=== PATIENT | male | born 1965 | race Caucasian/White ===

== ENCOUNTER 2017-07-21 00:18 | Emergency (ER) ==
[2017-07-21 00:29] VITALS: TEMP 97.1; BMI 35.2
[2017-07-21] MEDS ORDERED: DUONEB NEB STA (00:48)
[2017-07-21] MEDS ORDERED: SOLU-MEDROL 125 MG IM STA (00:48)
--- NOTE | 2017-07-21 00:57 | ED.PDOC ---
General ED Provider: Dr. JOSE ALEJANDRO LOVE Chief Complaint: Cough Stated Complaint: Patient is a 51 year old male who comes to the ER with cough conjestion for the past two weeks. Has productive cough which he swallows. Post nasal Drip, chest tightness. Time Seen by Physician: 00:20 Mode of Arrival: Walk-In Information Source: Patient Exam Limitations: No limitations [facility] Nursing and Triage Documentation Reviewed and Agree: Yes Respiratory Complaint Exam - Respiratory Complaint/Exam Onset/Duration: 2 weeks Symptoms Are: Still present Timing: Constant Initial Severity: Moderate Current Severity: Moderate Location: Throat (sore ), Chest Character: Reports: Productive cough Aggravating: Reports: URI, Passive smoke exposure, Weather Alleviating: Reports: None Associated Signs and Symptoms: Reports: Rapid breathing, Dyspnea, Wheezing, URI , Sore throat Related History: Denies: Similar episode, Allergic reaction, Seasonal allergies , MRSA, VRE History of Healthcare-Acquired Pneumonia: No Related Surgical History: Reports: None Pulmonary Embolism Risk Factors: None Cardiac Risk Factors: Reports: None Pseudomonas Risk Factors: Reports: None Status Asthmaticus Risk Factors: Reports: None Home Oxygen Use: No Recent Stress Test: No Recent Echo/LV Function: No Current Antibiotic Use: No Current Asthma Medication Use: No Respiratory Distress: Mild Inadequate Respiratory Effort: No Dysphagia Present: No Stridor Present: No JVD Present: No Accessory Muscle Use: No Retractions: Not Present Diminished Breath Sounds: Yes Sinus Tenderness: None Grunting Respirations: No Kussmaul Respirations: No Differential Diagnoses: Pneumonia, Bronchitis Review of Systems - Review Of Systems Constitutional: Reports: No symptoms Eyes: Reports: No symptoms Ears, Nose, Mouth, Throat: Reports: No symptoms Respiratory: Reports: Cough, Short of air, Wheezing Cardiac: Reports: No symptoms GI: Reports: No symptoms : Reports: No symptoms Musculoskeletal: Reports: No symptoms Skin: Reports: No symptoms Neurological: Reports: Anxiety Endocrine: Reports: No symptoms Hematologic/Lymphatic: Reports: No symptoms All Other Systems: Reviewed and Negative Past Medical History - Past Medical History Previously Healthy: No Endocrine: Reports: None Cardiovascular: Reports: Hypertension, Other (ENLARGED HEART) Respiratory: Reports: None Hematological: Reports: None Gastrointestinal: Reports: GERD Genitourinary: Reports: None Neuro/Psych: Reports: None Musculoskeletal: Reports: Arthritis, Back Pain Cancer: Reports: None, Other ( notes melanoma- bone scan 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/15 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) Other Pertinent Past Medical History: BACK SURGERY X2, KNEE SURGERY , REMOVED CYST OFF HEAD htn gerd - Surgical History General Surgical History: Reports: Orthopedic (KNEE SURGERY , ), Back Surgery ( BACK SURGERY X2, ), Other (REMOVED CYST OFF HEAD) - Family History Family History: Reports: Cancer (prostate metastatic to brain), Unknown - Social History Smoking Status: Current every day smoker, Heavy tobacco smoker Hx Substance Use: No Alcohol Screening: None - Immunizations Tetanus Shot up to Date: No (UNKNOWN) Physical Exam - Physical Exam Appearance: Ill-appearing Ill-appearing: Moderate Eyes: CARI, EOMI, Conjunctiva clear ENT: Ears normal, Oropharynx normal, Rhinorrhea Neck: Supple Respiratory: Breath sounds diminished, Wheezes Cardiovascular: RRR, Pulses normal, No rub, No murmur GI/: Soft, Nontender, No masses, Bowel sounds normal, No Organomegaly Musculoskeletal: Normal strength, ROM intact, No edema, No calf tenderness Skin: Warm, Dry, Normal color Neurological: Sensation intact, Motor intact, Reflexes intact, Cranial nerves intact, Alert, Oriented Psychiatric: Affect appropriate, Mood appropriate Interpretation - Radiology Interpretation Radiology Interpretation By: ED Physician Radiology Results: Negative Exam Interpreted: CXR Critical Care Note - Critical Care Note Total Time (mins): 0 Course - Course Hematology/Chemistry: 07/21/17 01:10 07/21/17 01:10 Orders, Labs, Meds: Lab Review 07/21/17 07/21/17 07/21/17 00:35 00:47 01:10 WBC 6.35 RBC 5.85 Hgb 17.3 Hct 48.0 MCV 82.1 MCH 29.6 MCHC 36.0 H RDW Coeff of Zaina 13.7 Plt Count 193 Immature Gran % (Auto) 0.9 Neut % (Auto) 57.4 Lymph % (Auto) 26.5 Lamar % (Auto) 9.1 Eos % (Auto) 5.2 Baso % (Auto) 0.9 Immature Gran # (Auto) 0.1 Neut # 3.6 Lymph # 1.7 Lamar # 0.6 Eos # 0.3 Baso # 0.1 Puncture Site Rrad O2 Saturation 96.0 ABG pH 7.444 ABG pCO2 34.8 L ABG pO2 80.0 L ABG HCO3 23.9 ABG Total CO2 25 ABG Base Excess 0 Mo Test + FiO2 % 21.0 Sodium Potassium Chloride Carbon Dioxide Anion Gap BUN Creatinine Estimated GFR (MDRD) BUN/Creatinine Ratio Glucose Lactic Acid Calcium Total Bilirubin AST ALT Alkaline Phosphatase Total Protein Albumin Globulin Albumin/Globulin Ratio Procalcitonin Influenza A (Rapid) Negative Influenza B (Rapid) Negative 07/21/17 07/21/17 07/21/17 01:10 01:10 01:10 WBC RBC Hgb Hct MCV MCH MCHC RDW Coeff of Zaina Plt Count Immature Gran % (Auto) Neut % (Auto) Lymph % (Auto) Lamar % (Auto) Eos % (Auto) Baso % (Auto) Immature Gran # (Auto) Neut # Lymph # Lamar # Eos # Baso # Puncture Site O2 Saturation ABG pH ABG pCO2 ABG pO2 ABG HCO3 ABG Total CO2 ABG Base Excess Mo Test FiO2 % Sodium 137 Potassium 3.8 Chloride 104 Carbon Dioxide 20 L Anion Gap 16.8 BUN 18 Creatinine 1.00 Estimated GFR (MDRD) 79.00 BUN/Creatinine Ratio 18.00 Glucose 87 Lactic Acid 11.0 Calcium 9.8 Total Bilirubin 0.63 AST 31 ALT 33 Alkaline Phosphatase 83 Total Protein 8.1 Albumin 4.1 Globulin 4.0 Albumin/Globulin Ratio 1.03 Procalcitonin 0.07 Influenza A (Rapid) Influenza B (Rapid) Orders Category Date Time Status ABG DRAW REQUEST Stat CARDIO 07/21/17 00:50 Completed NEBULIZER TREATMENT Stat CARDIO 07/21/17 00:50 Completed NEBULIZER TREATMENT Stat CARDIO 07/21/17 01:56 Completed ABG Stat LAB 07/21/17 00:47 Completed CBC W/ AUTO DIFF Stat LAB 07/21/17 01:10 Completed COMPREHENSIVE METABOLIC PANEL Stat LAB 07/21/17 01:10 Completed FLU A & B RAPID TEST [RAPID FLU A/B] Stat LAB 07/21/17 00:35 Completed LACTIC ACID Stat LAB 07/21/17 01:10 Completed MOLECULAR GROUP A STREP Stat LAB 07/21/17 00:35 Completed PROCALCITONIN Stat LAB 07/21/17 01:10 Completed STREP SCREEN Stat LAB 07/21/17 00:35 Completed Ipratropium/Albuterol Neb [Duoneb] MEDS 07/21/17 00:48 Discontinued 1 vial NEB ONCE STA Levalbuterol HCl [Xopenex 1.25 mg] MEDS 07/21/17 01:55 Discontinued 1 vial NEB ONCE STA Methylprednisolone Sod Succ/Pf [Solu-Medrol 125 mg] MEDS 07/21/17 00:48 Discontinued 125 mg IM ONCE STA CHEST, 2 VIEWS PA & LAT Stat RADS 07/21/17 00:48 Completed Medications Discontinued Medications Generic Name Dose Route Start Last Admin Trade Name Freq PRN Reason Stop Dose Admin Albuterol/Ipratropium 1 vial 07/21/17 00:48 07/21/17 00:55 Duoneb NEB 07/21/17 00:49 1 vial ONCE STA Administration Levalbuterol HCl 1 vial 07/21/17 01:55 07/21/17 02:08 Xopenex 1.25 Mg NEB 07/21/17 01:56 1 vial ONCE STA Administration Methylprednisolone Sodium Succinate 125 mg 07/21/17 00:48 07/21/17 01:21 Solu-Medrol 125 Mg IM 07/21/17 00:49 125 mg ONCE STA Administration Vital Signs: Temp Pulse Resp BP Pulse Ox 07/21/17 02:19 85 20 126/75 94 L 07/21/17 00:18 97.1 F L 83 32 H 155/79 H 93 L Departure - Departure Time of Disposition: 01:36 Disposition: HOME SELF-CARE Discharge Problem: Acute bronchitis Qualifiers: Bronchitis organism: other organism Qualified Code(s): J20.8 - Acute bronchitis due to other specified organisms Instructions: Acute Bronchitis (ED) Condition: Fair Pt referred to PMD for follow-up: Yes Additional Instructions: Push fluids Follow up with PCP in 3 days Quit smoking Take antibiotics and steroids as prescribed. Prescriptions: Azithromycin [Zithromax] 250 mg PO DIRECTED #6 tablet Benzonatate [Tessalon Perles] 100 mg PO TID PRN #25 capsule PRN Reason: Cold Symptons Methylprednisolone [Medrol Dosepak] 4 mg PO DIRECTED #1 pkg Allergies/Adverse Reactions: Allergies No Known Allergies Allergy (Verified 07/21/17 00:28) Home Medications: Ambulatory Orders Hydrocodone Bit/Acetaminophen [Lortab 10-500] 1 tab PO TID PRN 03/16/13 Cyclobenzaprine HCl [Flexeril] 10 mg PO TID PRN 10/11/13 Acetaminophen [Tylenol] 500 mg PO BID PRN 07/24/15 Tamsulosin HCl [Flomax] 0.4 mg PO DAILY #30 cap.er.24h 07/24/15 Aspirin [Aspir-Low] 81 mg PO DAILY #30 tablet. 08/21/16 Azithromycin [Zithromax] 250 mg PO DIRECTED #6 tablet 07/21/17 Benzonatate [Tessalon Perles] 100 mg PO TID PRN #25 capsule 07/21/17 Methylprednisolone [Medrol Dosepak] 4 mg PO DIRECTED #1 pkg 07/21/17 Omeprazole [Prilosec] 40 mg PO DAILY 07/21/17 Disposition Discussed With: Patient
[2017-07-21 00:58] LABS: FLU INTERNAL QC INTERNAL QC VALID; RAPID FLU A NEGATIVE (NEGATIVE); RAPID FLU B NEGATIVE (NEGATIVE)
[2017-07-21 01:10] LABS: ABG BASE EXCESS 0 (-2.0-2.0); ABG HCO3 23.9 (22.0-26.0); ABG PCO2 34.8 mmHg (35-45); ABG PH 7.444 (7.35-7.45); ABG TCO2 25 (22.0-28.0)
[2017-07-21 01:24] LABS: BASOPHILS # (AUTO) 0.1 K/uL (0-0.2); BASOPHILS % (AUTO) 0.9 % (0.0-3.0); EOSINOPHILS # (AUTO) 0.3 K/ul (0.0-0.7); EOSINOPHILS % (AUTO) 5.2 % (0.0-7.0); HEMOGLOBIN 17.3 g/dl (14.0-18.0); IMMATURE GRANULOCYTE % (AUTO) 0.9 % (0.0-5.0); LYMPHOCYTES # (AUTO) 1.7 K/uL (0.60-3.4); LYMPHOCYTES % (AUTO) 26.5 (10.0-50.0); MEAN CORPUSCULAR HEMOGLOBIN 29.6 pg (27.0-31.0); MEAN CORPUSCULAR VOLUME 82.1 fl (80.0-94.0); MONOCYTES # (AUTO) 0.6 K/uL (0.4-2.0); MONOCYTES % (AUTO) 9.1 (0-10); NEUTROPHILS # (AUTO) 3.6 K/ul (2.0-6.9); NEUTROPHILS % (AUTO) 57.4; PLATELET COUNT 193 10^3/uL (140-440); RED BLOOD COUNT 5.85 10^6/ul (4.70-6.10); WHITE BLOOD COUNT 6.35 K/ul (4.2-10.2)
[2017-07-21 01:31] LABS: ALBUMIN 4.1 g/dL (3.4-5.0); ALBUMIN/GLOBULIN RATIO 1.03; ANION GAP 16.8; BILIRUBIN,TOTAL 0.63 mg/dL (0.00-1.20); CALCIUM 9.8 mg/dL (8.2-10.2); POTASSIUM 3.8 mmol/L (3.5-5.1); TOTAL PROTEIN 8.1 g/dL (6.4-8.2)
[2017-07-21] MEDS ORDERED: XOPENEX 1.25 MG NEB STA (01:55)
[2017-07-21 02:19] VITALS: BP 126/75
--- NOTE | 2017-07-21 06:14 | DI ---
EXAM: Chest two views HISTORY: Cough FINDINGS: Normal cardiac and mediastinal contours. Normal pulmonary vasculature. Lungs are clear. Atherosclerotic calcification of the aorta. No acute abnormality of the bony thorax. IMPRESSION: No acute cardiopulmonary disease.
== END 2017-07-21 02:26 | disposition home or self-care (01) ==
LOC: ED 00:18
DX: J20.9 Acute bronchitis, unspecified (principal); F17.210 Nicotine dependence, cigarettes, uncomplicated
CPT/HCPCS: 36415; 80053; 82803; 83605; 84145; 85025; 87651; 87804; 87880; 94640; 96372; 99283

== ENCOUNTER 2018-03-11 15:42 | Outpatient (CLI) | END 2018-03-11 15:43 | disposition home or self-care (01) | LOC: RHC-LAB 15:42 | PROVIDERS: ATTEND Nurse Practitioner Family | DX: Z12.5 Encounter for screening for malignant neoplasm of prostate (principal); Z72.0 Tobacco use; E78.1 Pure hyperglyceridemia | CPT/HCPCS: 36415; 80053; 80061; 84443; 85025 ==

== ENCOUNTER 2018-05-13 15:42 | Outpatient (CLI) | END 2018-05-13 15:43 | disposition home or self-care (01) | LOC: RHC-LAB 15:42 | PROVIDERS: ATTEND Nurse Practitioner Family | DX: R71.8 Other abnormality of red blood cells (principal); E78.5 Hyperlipidemia, unspecified; E78.1 Pure hyperglyceridemia | CPT/HCPCS: 36415; 80053; 80061; 85025 ==

== ENCOUNTER 2018-11-18 16:11 | Emergency (ER) ==
[2018-11-18 16:24] VITALS: BP 131/81; TEMP 97.7; BMI 5437.4
--- NOTE | 2018-11-18 16:32 | ED.PDOC ---
General ED Provider: Dr. IVONNE LARA Chief Complaint: Chest Pain Stated Complaint: L arm pain; chest pain Time Seen by Physician: 16:35 Mode of Arrival: Walk-In Information Source: Patient Exam Limitations: No limitations Primary Care Provider: LUCY PEDRAZA Nursing and Triage Documentation Reviewed and Agree: Yes Does patient meet sepsis criteria?: No System Inflammatory Response Syndrome: Not Applicable Sepsis Protocol: For patient's 13 years and over: Temp is 96.8 and below OR 101 and greater Pulse >90 BPM Resp >20/minute Acutely Altered Mental Status Are patient's symptoms suggestive of a new infection, such as: -Pneumonia -Skin, Soft Tissue -Endocarditis -UTI -Bone, Joint Infection -Implantable Device -Acute Abdominal Infection -Wound Infection -Meningitis -Blood Stream Catheter Infection -Unknown Cardiovascular Complaint Exam - Chest Pain Complaint/Exam Onset: Gradual (Usually gets some CP that does not last long - usually relieved by rest; has not slept well - tired) Symptoms Are: Still present (Much better) Timing: Constant (Today started left arm then moved to chest; no shortness of air; feels tired) Initial Severity: Moderate Current Severity: Mild Location: Reports: Midsternal (after Left arm pain) Character: Reports: Aching Aggravating: Reports: Movement (Pain increased with stretching arms outwards) Alleviating: Reports: Rest Associated Signs and Symptoms: Denies: Diaphoresis, Nausea, Fever, Palpitations , Cough Related History: Reports: Similar episode (Has had frequently; usually clears up and is better after sleeping; lately cannot sleep well; feels tired.) Review of Systems - Review Of Systems Constitutional: Reports: Malaise, Weakness (Chronic) Ears, Nose, Mouth, Throat: Reports: No symptoms Respiratory: Reports: No symptoms. Denies: Cough, Orthopnea, Short of air, Stridor Cardiac: Reports: Chest pain, Lightheadedness. Denies: Edema, Irregular heart rate GI: Reports: No symptoms. 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) Other Pertinent Past Medical History: BACK SURGERY X2, KNEE SURGERY , REMOVED CYST OFF HEAD htn gerd - Surgical History General Surgical History: Reports: Orthopedic (KNEE SURGERY , ), Back Surgery ( BACK SURGERY X2, ), Other (REMOVED CYST OFF HEAD) - Family History Family History: Reports: Cancer (prostate metastatic to brain), Unknown - Social History Smoking Status: Current every day smoker, Heavy tobacco smoker Hx Substance Use: No Alcohol Screening: None Physical Exam - Physical Exam Appearance: Well-appearing Ill-appearing: None Pain Distress: None Eyes: CARI, EOMI ENT: Oropharynx normal Neck: Supple Respiratory: Airway patent, Breath sounds clear, Breath sounds equal, Respirations nonlabored Cardiovascular: RRR, Pulses normal GI/: Soft, Nontender, Bowel sounds normal Musculoskeletal: Normal strength, ROM intact, No edema, No calf tenderness Skin: Warm, Dry, Normal color Neurological: Sensation intact, Motor intact, Alert, Oriented Psychiatric: Affect appropriate, Mood appropriate Interpretation - Radiology Interpretation Radiology Interpretation By: ED Physician Radiology Results: No acute changes Exam Interpreted: Portable CXR - EKG Interpretation Time of EKG #1: 16:35 Rate: Normal Rhythm: Sinus Ectopy: None [place]: [place] ST Segment: Normal Interpretation: No acute changes Critical Care Note - Critical Care Note Total Time (mins): 35 Comments: Review of symptoms, history, labs, chest Xray; EKG and discussisons with patient with spouse present. Repeat tropoinin Course - Course Hematology/Chemistry: 11/18/18 16:41 11/18/18 16:41 Orders, Labs, Meds: Lab Review 11/18/18 11/18/18 11/18/18 16:35 16:41 16:41 WBC 4.90 RBC 5.35 Hgb 15.7 Hct 44.8 MCV 83.7 MCH 29.3 MCHC 35.0 RDW Coeff of Zaina 13.8 Plt Count 171 Immature Gran % (Auto) 0.2 Neut % (Auto) 59.1 Lymph % (Auto) 28.6 [place]ink % (Auto) 7.8 Eos % (Auto) 3.3 Baso % (Auto) 1.0 Immature Gran # (Auto) 0.0 Neut # (Auto) 2.9 Lymph # (Auto) 1.4 [place]ink # (Auto) 0.4 Eos # (Auto) 0.2 Baso # (Auto) 0.1 D-Dimer (Manual) 401.64 Sodium 138.1 Potassium 4.10 Chloride 103.9 Carbon Dioxide 26.5 Anion Gap 11.80 BUN 16.7 Creatinine 0.94 Estimated GFR (MDRD) 85.00 BUN/Creatinine Ratio 17.76 Glucose 93.8 Calcium 8.87 Total Bilirubin 0.67 AST 48.9 ALT 37.9 Alkaline Phosphatase 67.1 Troponin I < 0.012 Total Protein 6.96 Albumin 4.38 Globulin 2.58 Albumin/Globulin Ratio 1.69 Orders Category Date Time Status EKG-(ED ONLY) Stat CARDIO 11/18/18 16:30 Completed CBC W/ AUTO DIFF Stat LAB 11/18/18 16:41 Completed COMPREHENSIVE METABOLIC PANEL Stat LAB 11/18/18 16:41 Completed D-DIMER Stat LAB 11/18/18 16:35 Received TROPONIN I Stat LAB 11/18/18 16:35 Received TROPONIN I Stat LAB 11/18/18 16:41 Completed CHEST, 1V AP ONLY Stat RADS 11/18/18 16:29 Completed Vital Signs: Temp Pulse Resp BP Pulse Ox 11/18/18 16:14 97.7 F 79 20 131/81 97 JACQUI Risk Score JACQUI Risk Score: Risk Score Odds of by 30D 0 0.1 (0.1-0.2) 1 0.3 (0.2-0.3) 2 0.4 (0.3-0.5) 3 0.7 (0.6-0.9) 4 1.2 (1.0-1.5) 5 2.2 (1.9-2.6) 6 3.0 (2.5-3.6) 7 4.8 (3.8-6.1) Departure - Departure Time of Disposition: 19:09 Disposition: HOME SELF-CARE Discharge Problem: Chest pain Qualifiers: Chest pain type: unspecified Qualified Code(s): R07.9 - Chest pain, unspecified Instructions: Chest Pain (ED) Condition: Stable Pt referred to PMD for follow-up: Yes (Must follow up with primary care provider ) IPMP verified?: No (Pt is on chronic pain management) Additional Instructions: Must follow up with primary care provider; return to ER if sudden return of pain in chest. Allergies/Adverse Reactions: Allergies No Known Allergies Allergy (Verified 07/21/17 00:28) Home Medications: Ambulatory Orders Hydrocodone Bit/Acetaminophen [Lortab 10-500] 1 tab PO TID PRN 03/16/13 Cyclobenzaprine HCl [Flexeril] 10 mg PO TID PRN 10/11/13 Acetaminophen [Tylenol] 500 mg PO BID PRN 07/24/15 Omeprazole [Prilosec] 40 mg PO DAILY 07/21/17 Naproxen Sodium 440 mg PO DAILY 11/18/18 Disposition Discussed With: Patient
--- NOTE | 2018-11-18 16:58 | DI ---
EXAM: Single frontal view of the chest HISTORY: Chest pain. COMPARISON: Chest x-ray 07/21/2017 FINDINGS: Cardiomediastinal silhouette is normal. There is no pneumothorax or pleural effusion. The re is no consolidation, nodule or mass. The osseous structures are unremarkable. IMPRESSION: No acute cardiopulmonary process.
== END 2018-11-18 19:43 | disposition home or self-care (01) ==
LOC: ED 16:11
DX: R07.9 Chest pain, unspecified (principal); M79.602 Pain in left arm; I10 Essential (primary) hypertension; R53.83 Other fatigue; R53.1 Weakness; R42 Dizziness and giddiness; M54.9 Dorsalgia, unspecified; G89.29 Other chronic pain; F17.210 Nicotine dependence, cigarettes, uncomplicated
CPT/HCPCS: 36415; 80053; 84484; 85025; 85379; 93005; 93010; 99283

== ENCOUNTER 2018-12-08 15:17 | Outpatient (CLI) ==
--- NOTE | 2018-12-10 19:02 | MRI ---
EXAM: Cervical spine MRI without contrast. HISTORY: Cervical arthropathy. COMPARISON: Cervical spine radiographs 10/25/2012. TECHNIQUE: Multiplanar, multisequence MR images were acquired cervical spine without contrast. The study is degraded by decreased [id number] due to the patient's large body habitus with increased distance of the spine from the coil. This produces decreased spatial contrast resolution. There is a lack of cross reference seen between the sagittal and axial slices due to repositioning which limi ts interpretation. Cervical CT myelography would be helpful to better define the anatomy. FINDINGS: The study is degraded by lack of [id number]. The craniocervical junction is normal. The there is no cerebellar tonsillar ectopia. The pituitary gland is small and flattened inferiorly with a mildly concave superior border most compatible with a mostly empty sella. The cervical cord has no abnormal T2 hyperintensities. There is mucosal thickening and a trace fluid scattered in marci ral mastoid air cells bilaterally. The cervical vertebra are normal in height, AP alignment and intr insic bone marrow signal. There is minor ventral spondylosis at C4-5 and C5-6. There are no paraver tebral masses. Visualized lung apices are clear. C2-3: There is a mild dorsal spondylotic ridge that is asymmetric to the left which merges with left uncovertebral hypertrophy. This mildly effaces the left lateral recess where it may adversely conta ct the ventral left C3 nerve root. There is mild left neural foraminal stenosis. C3-4: There is a mild dorsal spondylotic ridge that is asymmetric to the right with a small right po sterolateral disc extrusion that effaces the right lateral recess where may adversely contact the malathi tral right C4 nerve root. Bilateral uncovertebral hypertrophy is present, greater on the left and th ere is probable moderate right and mild-moderate left foraminal stenosis. C4-5: There is a mild disc bulge and right uncovertebral hypertrophy with mild right foraminal steno sis. C5-6: There is a mild disc bulge, right uncovertebral hypertrophy and possible mild left foraminal s tenosis. C6-7: The intervertebral disc is normal. Mild right hypertrophic facet arthropathy is present. The re is no central canal stenosis. C7-T1: There is a minor disc bulge without central canal stenosis. The neural foramina are patent. IMPRESSION: 1. Mild cervical degenerative spondylosis without spinal stenosis. Detail is limited by decreased s [id number] and lack of cross reference seen. Cervical CT or CT myelography is advised to better define the osseous anatomy. 2. Mild discogenic disease C3-4 that is asymmetric to the right with small right posterolateral disc extrusion that may adversely contact the ventral right C4 nerve root.
== END 2018-12-08 15:18 | disposition home or self-care (01) ==
LOC: RAD 15:17
PROVIDERS: ATTEND Pain Medicine Interventional Pain Medicine
DX: M51.16 Intervertebral disc disorders with radiculopathy, lumbar region (principal); M51.17 Intervertebral disc disorders with radiculopathy, lumbosacral region; M48.061 Spinal stenosis, lumbar region without neurogenic claudication; M48.07 Spinal stenosis, lumbosacral region; M47.816 Spondylosis without myelopathy or radiculopathy, lumbar region; M47.817 Spondylosis without myelopathy or radiculopathy, lumbosacral region; M96.1 Postlaminectomy syndrome, not elsewhere classified; M50.820 Other cervical disc disorders, mid-cervical region, unspecified level; M99.61 Osseous and subluxation stenosis of intervertebral foramina of cervical region; M48.02 Spinal stenosis, cervical region; M47.813 Spondylosis without myelopathy or radiculopathy, cervicothoracic region; M50.31 Other cervical disc degeneration, high cervical region; M50.321 Other cervical disc degeneration at C4-C5 level

== ENCOUNTER 2018-12-09 15:26 | Outpatient (CLI) ==
--- NOTE | 2018-12-11 02:52 | MRI ---
EXAM: Lumbar spine MRI with and without contrast. HISTORY: Degenerative disc disease. COMPARISON: Lumbar spine MRI 06/08/2014. TECHNIQUE: Multiplanar, multisequence MR images were acquired of the lumbar spine before and after a dministration of intravenous contrast. FINDINGS: Four classic non-rib bearing lumbar vertebra are present and these are numbered L1 to L4. L5 is a transitional vertebra with partial bilateral sacralization. Conus medullaris ends at L1-2 a nd has normal morphology and signal intensity. There is no abnormal leptomeningeal contrast enhancem ent. There is mild thoracolumbar levoscoliosis centered at L2-3 and there is 2 mm retrolisthesis of L3 on L4. Marginal osteophytes are present in the lumbar spine and there is ventral spondylosis at L 2-3 with minor type 2 anterior endplate changes. At L3-4, there is a diffuse disc osteophyte complex that is asymmetric to the right with moderate to marked disc space narrowing that is greatest right laterally where there is mild endplate irregular with small chronic Schmorl's nodes and mixed type 1 and type 2 endplate changes. At L5-S1, there is a mild diffuse disc osteophyte complex with moderate to marked disc space narrowing that is greatest posteriorly with mild endplate irregularity and type 2 endplate changes. There is a small disc at L5-S1. The partially visualized liver, spleen and kidneys are unremarkable. There are no paravertebral mass es. L1-2: There is a minor disc bulge that minimally narrows inferior left neural foramen. There is min or left and mild right facet and ligamentum flavum hypertrophy. There is no central canal stenosis o r significant foraminal stenosis. L2-3: There is a mild disc bulge that is asymmetric to the left and mild bilateral hypertrophic face t arthropathy and ligamentum flavum hypertrophy. A tiny degenerative cyst is present along the poste rior right facet joint. There is a small central disc protrusion and tiny central enhancing annular tear. There is mild spinal stenosis and mild right and mild to moderate left neural foraminal stenos is. AP diameter of the thecal sac is 9 mm. L3-4: There is retrolisthesis of L3 on L4 and there is a moderate diffuse disc bulge and a moderate central disc protrusion that effaces the ventral thecal sac. Moderate bilateral facet and ligamentum flavum hypertrophy is present. There is mildly prominent dorsal epidural fat. There is mild spinal stenosis and moderate bilateral foraminal stenosis, greater on the left. AP diameter of the thecal sac is 7.4 mm. L4-5: There is a dorsal spondylotic ridge that is asymmetric to the left which encroaches on the lef t L4 nerve exiting the neural foramen and there is a small to moderate central disc extrusion with in ferior migration and minor L5 superior endplate osteophytes. This mildly effaces the ventral thecal sac and may contact the anteromedial L5 nerve roots. Bilateral facet and ligamentum flavum hypertrop hy is present and there is moderate bilateral foraminal stenosis. L5-S1: There is a rudimentary intervertebral disc and there are postoperative right medial laminotom y and partial medial facetectomy changes. There is no residual or recurrent disc herniation. IMPRESSION: 1. Mild to moderate lumbar degenerative spondylosis most significant at L4-5 where there is a modera te disc bulge, endplate irregularity and mixed type 1 and type 3 endplate changes. 2. Small central disc protrusion L2-3, small to moderate central disc extrusion L4-5 and moderate di sc protrusion L3-4. 3. Multilevel foraminal stenosis.
== END 2018-12-09 15:27 | disposition home or self-care (01) ==
LOC: RAD 15:26
PROVIDERS: ATTEND Pain Medicine Interventional Pain Medicine
DX: M51.16 Intervertebral disc disorders with radiculopathy, lumbar region (principal); M51.17 Intervertebral disc disorders with radiculopathy, lumbosacral region; M48.061 Spinal stenosis, lumbar region without neurogenic claudication; M48.07 Spinal stenosis, lumbosacral region; M47.816 Spondylosis without myelopathy or radiculopathy, lumbar region; M47.817 Spondylosis without myelopathy or radiculopathy, lumbosacral region; M96.1 Postlaminectomy syndrome, not elsewhere classified; M50.820 Other cervical disc disorders, mid-cervical region, unspecified level; M99.61 Osseous and subluxation stenosis of intervertebral foramina of cervical region; M48.02 Spinal stenosis, cervical region; M47.813 Spondylosis without myelopathy or radiculopathy, cervicothoracic region; M50.31 Other cervical disc degeneration, high cervical region; M50.321 Other cervical disc degeneration at C4-C5 level

== ENCOUNTER 2022-03-11 21:52 | Inpatient (IN) ==
[2022-03-11 22:43] LABS: BASOPHILS % (AUTO) 0.8 % (0.0-3.0); EOSINOPHILS # (AUTO) 0.1 K/ul (0.0-0.7); EOSINOPHILS % (AUTO) 2.9 % (0.0-7.0); HEMATOCRIT 49.7 % (42.0-52.0); HEMOGLOBIN 17.4 g/dl (14.0-18.0); IMMATURE GRANULOCYTE % (AUTO) 0.2 % (0.0-5.0); LYMPHOCYTES # (AUTO) 1.2 K/uL (0.60-3.4); LYMPHOCYTES % (AUTO) 24.2 (10.0-50.0); MEAN CORPUSCULAR HEMOGLOBIN 29.5 pg (27.0-31.0); MEAN CORPUSCULAR VOLUME 84.4 fl (80.0-94.0); MONOCYTES # (AUTO) 0.4 K/uL (0.4-2.0); MONOCYTES % (AUTO) 7.7 (0-10); NEUTROPHILS # (AUTO) 3.1 K/ul (2.0-6.9); NEUTROPHILS % (AUTO) 64.2 % (42.2-75.2); PLATELET COUNT 182 10^3/uL (140-440); RDW COEFFICIENT OF VARIATION 13.5 % (11.6-14.8); RED BLOOD COUNT 5.89 10^6/ul (4.70-6.10)
[2022-03-11 22:55] LABS: ALANINE AMINOTRANSFERASE 41.3 U/L (0-50); ALKALINE PHOSPHATASE 76.3 U/L (38-126); ASPARTATE AMINO TRANSFERASE 44.8 U/L (17-59); BILIRUBIN,TOTAL 0.71 mg/dL (0.2-1.3); BLOOD UREA NITROGEN 13.3 mg/dL (9-20); CALCIUM 9.23 mg/dL (8.4-10.2); CARBON DIOXIDE 24.2 mmol/L (22-30.0); CHLORIDE 104.4 mmol/L (98-107); CREATINE KINASE 126.5 U/L (55-170); CREATININE 0.91 mg/dL (0.60-1.10); GLUCOSE 128.5 mg/dL (74-106); POTASSIUM 3.93 mmol/L (3.5-5.1); SODIUM 138.2 mmol/L (134.5-145); TOTAL PROTEIN 7.79 g/dL (6.3-8.2)
--- NOTE | 2022-03-11 23:05 | DI ---
EXAM: Two views of the chest. History: Chest pain. Comparison: Chest radiograph 01/09/2021 Findings: Heart size is normal. No consolidation. No pleural fluid and no pneumothorax. No acute osseous abnormalities. Impression: No acute cardiopulmonary process
[2022-03-11 23:07] LABS: TROPONIN I < 0.012 ng/ml (0.0000-0.120)
[2022-03-11] MEDS ORDERED: ASPIRIN CHEWABLE PO STA (23:54)
--- NOTE | 2022-03-11 23:54 | ED.PDOC ---
General ED Provider: Dr. JOSE ALEJANDRO LOVE Chief Complaint: Chest Pain Stated Complaint: Patient states that he lifted something heavy twp days ago then yesterday started having severe chest and back pain that radiated to the left arm. The pain was severe but did not want to comes to the hospital. He called and was told he needed to come be seen. By this time his pain had subsided significantly. He states that he daughter insisted he needed to come be seen. His last dobutamine stress was over [address] Blackwell. Time Seen by Provider: 03/11/22 22:15 Mode of Arrival: Walk-In Information Source: Patient Primary Care Provider: STEFANO PEREZ APRN Nursing and Triage Documentation Reviewed and Agree: Yes Does patient meet sepsis criteria?: No System Inflammatory Response Syndrome: Not Applicable Sepsis Protocol: For patient's 13 years and over: Temp is 96.8 and below OR 101 and greater Pulse >90 BPM Resp >20/minute Acutely Altered Mental Status Are patient's symptoms suggestive of a new infection, such as: -Pneumonia -Skin, Soft Tissue -Endocarditis -UTI -Bone, Joint Infection -Implantable Device -Acute Abdominal Infection -Wound Infection -Meningitis -Blood Stream Catheter Infection -Unknown Review of Systems Review Of Systems Constitutional: Reports No symptoms Eyes: Reports No symptoms Ears, Nose, Mouth, Throat: Reports No symptoms Respiratory: Reports No symptoms Cardiac: Reports Chest pain GI: Reports No symptoms : Reports No symptoms Musculoskeletal: Reports Joint pain (left arm ) Skin: Reports No symptoms Neurological: Reports Anxiety All Other Systems: Reviewed and Negative [facility] Medical History Enlarged prostate Hyperlipidemia Intervertebral disc protrusion Low back pain Lumbar nerve root compression Social History Smoking and tobacco status: Current every day smoker History of recent travel: No Surgical History History of joint surgery History of musculoskeletal system surgery Physical Exam Physical Exam Appearance: Reports Well-appearing and Obese Ill-appearing: None Pain Distress: Mild Eyes: Reports CARI, EOMI and Conjunctiva clear ENT: Reports Nose normal and Oropharynx normal Neck: Not Examined Respiratory: Reports Airway patent, Breath sounds clear and Breath sounds equal Cardiovascular: Reports RRR, Pulses normal and No rub GI/: Reports Soft, Nontender and No masses Musculoskeletal: Reports Normal strength, ROM intact and No edema Skin: Reports Warm, Dry and Normal color Neurological: Reports Motor intact, Alert and Oriented Psychiatric: Reports Anxious Interpretation Radiology Interpretation Radiology Interpretation By: Radiologist Radiology Results: Negative Exam Interpreted: CXR Senior Technical Program Manager Time of Senior Technical Program Manager Interpretation: 22:00 Rate: Normal Rhythm: Sinus Ectopy: PVCs EKG Interpretation Time of EKG #1: 21:57 Rate: Normal Rhythm: Sinus Ectopy: PVCs [place]: NL Interpretation: no ischemic changes Critical Care Note Critical Care Note Total Critical Care Time (mins): 0 Comments: Patient has multiple risk factors and will need risk stratification with consolation with DR Blackwell. Course Course Hematology/Chemistry: 03/11/22 22:37 03/11/22 22:37 Orders, Labs, Meds: Lab Review 03/11/22 03/11/22 03/11/22 22:37 22:37 Unknown WBC 4.80 RBC 5.89 Hgb 17.4 Hct 49.7 MCV 84.4 MCH 29.5 MCHC 35.0 RDW Coeff of Zaina 13.5 Plt Count 182 Immature Gran % (Auto) 0.2 Neut % (Auto) 64.2 Lymph % (Auto) 24.2 [place] % (Auto) 7.7 Eos % (Auto) 2.9 Baso % (Auto) 0.8 Neut # (Auto) 3.1 Lymph # (Auto) 1.2 [place] # (Auto) 0.4 Eos # (Auto) 0.1 Baso # (Auto) 0.0 Immature Gran # (Auto) 0.0 Sodium 138.2 Potassium 3.93 Chloride 104.4 Carbon Dioxide 24.2 Anion Gap 13.53 BUN 13.3 Creatinine 0.91 Estimated GFR (MDRD) 87.00 BUN/Creatinine Ratio 14.61 Glucose 128.5 H Calcium 9.23 Total Bilirubin 0.71 AST 44.8 ALT 41.3 Alkaline Phosphatase 76.3 Total Creatine Kinase 126.5 CK-MB (CK-2) 1.590 CK-MB (CK-2) % 1.2500 Troponin I < 0.012 Total Protein 7.79 Albumin 4.30 Globulin 3.49 Albumin/Globulin Ratio 1.23 SARS CoV-2 RNA Rapid ULICES Negative Orders Category Date Time Status EKG-(ED ONLY) Stat CARDIO 03/11/22 22:16 Ordered CBC W/ AUTO DIFF Stat LAB 03/11/22 22:37 Completed COMPREHENSIVE METABOLIC PANEL Stat LAB 03/11/22 22:37 Completed CREATINE KINASE Stat LAB 03/11/22 22:37 Completed SARS COV-2 RNA RAPID ULICES Stat LAB 03/11/22 Completed TROPONIN I Stat LAB 03/11/22 22:37 Completed Aspirin [Aspirin Chewable] MEDS 03/11/22 23:54 Discontinued 324 mg PO ONCE STA CHEST, 2 VIEWS PA & LAT Stat RADS 03/11/22 22:16 Completed Medications Discontinued Medications Generic Name Dose Route Start Last Admin Trade Name Leonel PRN Reason Stop Dose Admin Aspirin 324 mg 03/11/22 23:54 03/11/22 23:57 Aspirin 81 Mg Tab.Chew PO 03/11/22 23:55 324 mg ONCE STA Administration Vital Signs: Temp Pulse Resp BP Pulse Ox 03/12/22 00:09 71 19 132/72 95 03/11/22 21:56 96.2 F L 82 20 148/84 H 97 JACQUI Risk Score Age >/= 65: No >/= 3 CAD Risk Factors: Yes Known CAD (Stenosis >/= 50%): No ASA Use in Past 7 Days: No Severe Angina (>/= 2 episodes in 24 hours): Yes EKG ST Changes >/= 0.5mm: No Postive Cardiac Marker: No JACQUI Total Score: 2 JACQUI Risk Score: Risk Score Odds of by 30D 0 0.1 (0.1-0.2) 1 0.3 (0.2-0.3) 2 0.4 (0.3-0.5) 3 0.7 (0.6-0.9) 4 1.2 (1.0-1.5) 5 2.2 (1.9-2.6) 6 3.0 (2.5-3.6) 7 4.8 (3.8-6.1) Discharge Plan Discharge Patient Disposition: PLACED OBSERVATION Discharge Problem: Chest pain Did you review [place] NURSE PRACTITIONER PHYSICIAN ASSISTANT?: Not Applicable ED Provider: JOSE ALEJANDRO LOVE Condition: Fair Physician Progress Note: []
[2022-03-12] MEDS ORDERED: DILAUDID 1 MG/ML SYRINGE IVP PRN (00:22)
[2022-03-12] MEDS ORDERED: ZOFRAN 4 MG/2 ML IVP PRN (00:22)
[2022-03-12] MEDS ORDERED: TYLENOL PO PRN (00:22)
[2022-03-12] MEDS ORDERED: SODIUM CHLORIDE 1,000 ML IV SCH (00:30)
[2022-03-12] MEDS: NICODERM 21 MG TD SCH ×2 (00:52→08:40)
[2022-03-12 01:05] VITALS: BMI 38.7
[2022-03-12] MEDS ORDERED: VENTOLIN HFA (PER PUFF-WITH SPACER) IH PRN (01:42)
[2022-03-12] MEDS ORDERED: FLEXERIL PO PRN (01:42)
[2022-03-12 05:28] LABS: BASOPHILS # (AUTO) 0.1 K/uL (0-0.2); BASOPHILS % (AUTO) 2.6 % (0.0-3.0); EOSINOPHILS # (AUTO) 0.2 K/ul (0.0-0.7); EOSINOPHILS % (AUTO) 3.7 % (0.0-7.0); HEMATOCRIT 50.1 % (42.0-52.0); HEMOGLOBIN 16.6 g/dl (14.0-18.0); IMMATURE GRANULOCYTE % (AUTO) 0.4 % (0.0-5.0); LYMPHOCYTES # (AUTO) 1.5 K/uL (0.60-3.4); LYMPHOCYTES % (AUTO) 29.8 (10.0-50.0); MEAN CORPUSCULAR HEMOGLOBIN 29.4 pg (27.0-31.0); MEAN CORPUSCULAR HGB CONC 33.1 (31.8-35.4); MEAN CORPUSCULAR VOLUME 88.8 fl (80.0-94.0); MONOCYTES # (AUTO) 0.3 K/uL (0.4-2.0); MONOCYTES % (AUTO) 6.7 (0-10); NEUTROPHILS # (AUTO) 2.9 K/ul (2.0-6.9); NEUTROPHILS % (AUTO) 56.8 % (42.2-75.2); RDW COEFFICIENT OF VARIATION 14.1 % (11.6-14.8); RED BLOOD COUNT 5.64 10^6/ul (4.70-6.10); WHITE BLOOD COUNT 5.07 K/ul (4.2-10.2)
[2022-03-12 05:48] LABS: BLOOD UREA NITROGEN 14.7 mg/dL (9-20); CALCIUM 8.86 mg/dL (8.4-10.2); CARBON DIOXIDE 24.6 mmol/L (22-30.0); CHLORIDE 105.4 mmol/L (98-107); CREATININE 0.89 mg/dL (0.60-1.10); POTASSIUM 4.14 mmol/L (3.5-5.1); SODIUM 136.7 mmol/L (134.5-145)
[2022-03-12 05:55] LABS: PLATELET COUNT 179 10^3/uL (140-440)
[2022-03-12 06:01] LABS: TROPONIN I < 0.012 ng/ml (0.0000-0.120)
[2022-03-12] MEDS ORDERED: PRILOSEC PO SCH (08:00)
[2022-03-12] MEDS ORDERED: ASPIRIN CHEWABLE PO SCH (08:30)
[2022-03-12] MEDS ORDERED: NITROSTAT SL PRN (08:39)
[2022-03-12] MEDS ORDERED: ATROPINE SULFATE PFS IVP PRN (08:39)
[2022-03-12] MEDS: LOVENOX SUBCUT SCH ×2 (08:41→08:44)
--- NOTE | 2022-03-12 08:53 | PCM.PROG ---
Attending Provider: ATTENDING PROVIDER: Dr. SAURAV PAK MD This patient is seen with Pascale Stewart, Nurse Practitioner. DATE OF SERVICE: 03/12/22 SUBJECTIVE: This 56 year old /WHITE M was hospitalized 03/12/22. Has had chest pain off and on initially after lifting object then noted with exertion. Some shortness of breath with exertion and pain radiating down left arm. Heavy smoker for 30 years 1-2 packs per day. He has history of Dyslipidemia, no recent lipids.He is obese. Blood pressure elevated here. Seen by Pain Management for chronic low back pain. He has history of GERD. REVIEW OF SYSTEMS: CONSTITUTIONAL: No night sweats. No fatigue, malaise, lethargy. No fever or chills. HEENT: Eyes: No visual changes. No eye pain. No eye discharge. ENT: No runny nose. No epistaxis. No sinus pain. No odynophagia. No congestion. RESPIRATORY: No cough, no congestion. No hemoptysis. Shortness of breath with exertion. CARDIOVASCULAR: No angina symptoms. No CHF symptoms. Chest discomfort. No palpitations. No orthopnea.. GASTROINTESTINAL: No abdominal pain. No nausea or vomiting. No diarrhea or constipation. No hematemesis. No hematochezia. GENITOURINARY: No urgency. No frequency. No dysuria. No hematuria. No obstructive symptoms. No discharge. No pain. No significant abnormal bleeding. MUSCULOSKELETAL: No musculoskeletal pain; no joint swelling. NEUROLOGICAL: Awake, alert, oriented to time, place and person. No headache. No neck pain. No syncope. No seizures. No dizziness. PSYCHIATRIC: Not anxious. No depression. No suicidal thoughts. No homicidal thoughts. SKIN: No rash. No lesions. No wounds. ENDOCRINE: No unexplained weight loss. No weight gain. HEMATOLOGIC/LYMPHATIC: No anemia. No purpura. No petechiae. No prolonged or excessive bleeding. No palpable lymph nodes. PHYSICAL EXAMINATION: GENERAL: The patient is awake, alert and oriented, sitting in bed in no distress. VITAL SIGNS: Temperature 96.9 F, Pulse 63, Respiratory Rate 18, BP 143/74, Pulse Ox 98% HEENT: Head normocephalic, atraumatic. Eyes: Extraocular muscles are intact. Pupils are equal, round and reactive to light and accommodation. Ears: No lesions. Nose appeared normal. Throat: No exudate or erythema. NECK: Supple. No JVD, no carotid bruit. No lymphadenopathy or thyromegaly. LUNGS: Diminished breath sounds. Clear to auscultation. Percussion note normal. Chest symmetrical. HEART: S1, S2, no S3. No murmurs. No cyanosis or clubbing. No ascites. Pulses: Dorsalis pedis and posterior tibial pulses +1 to +2 both sides. ABDOMEN: Soft. Non-tender. Bowel sounds active. No CVA tenderness. No mass felt. EXTREMITIES: No edema. Full range of motion of all extremities, equal. NEUROLOGIC: No focal deficit. Cranial nerves II through XII are grossly intact. No headache. No double vision. SKIN: Not dry. Intact. Turgor-normal. LYMPHATIC: No palpable lymph nodes/no lymphedema. MUSCULOSKELETAL: Normal joints with no swelling. Muscle tone is normal. LAB REVIEW: 03/12/22 05:08 03/12/22 05:08 03/12/22 05:08: Total Creatine Kinase 99.0, Troponin I < 0.012 03/12/22 05:08: Sodium 136.7, Potassium 4.14, Chloride 105.4, Carbon Dioxide 24.6, Anion Gap 10.84, BUN 14.7, Creatinine 0.89, Estimated GFR (MDRD) 89.00, BUN/Creatinine Ratio 16.51, Glucose 89.0, Calcium 8.86 03/12/22 05:08: WBC 5.07, RBC 5.64, Hgb 16.6, Hct 50.1, MCV 88.8, MCH 29.4, MCHC 33.1, RDW Coeff of Zaina 14.1, Plt Count 179, Immature Gran % (Auto) 0.4, Neut % (Auto) 56.8, Lymph % (Auto) 29.8, [place] % (Auto) 6.7, Eos % (Auto) 3.7, Baso % (Auto) 2.6, Neut # (Auto) 2.9, Lymph # (Auto) 1.5, [place] # (Auto) 0.3 L, Eos # (Auto) 0.2, Baso # (Auto) 0.1, Immature Gran # (Auto) 0.0 03/11/22 : SARS CoV-2 RNA Rapid ULICES Negative 03/11/22 22:37: Sodium 138.2, Potassium 3.93, Chloride 104.4, Carbon Dioxide 24.2, Anion Gap 13.53, BUN 13.3, Creatinine 0.91, Estimated GFR (MDRD) 87.00, BUN/Creatinine Ratio 14.61, Glucose 128.5 H, Calcium 9.23, Total Bilirubin 0.71, AST 44.8, ALT 41.3, Alkaline Phosphatase 76.3, Total Creatine Kinase 126.5, CK- MB (CK-2) 1.590, CK-MB (CK-2) % 1.2500, Troponin I < 0.012, Total Protein 7.79, Albumin 4.30, Globulin 3.49, Albumin/Globulin Ratio 1.23 03/11/22 22:37: WBC 4.80, RBC 5.89, Hgb 17.4, Hct 49.7, MCV 84.4, MCH 29.5, MCHC 35.0, RDW Coeff of Zaina 13.5, Plt Count 182, Immature Gran % (Auto) 0.2, Neut % (Auto) 64.2, Lymph % (Auto) 24.2, [place] % (Auto) 7.7, Eos % (Auto) 2.9, Baso % (Auto) 0.8, Neut # (Auto) 3.1, Lymph # (Auto) 1.2, [place] # (Auto) 0.4, Eos # (Auto) 0.1, Baso # (Auto) 0.0, Immature Gran # (Auto) 0.0 ASSESSMENT: Please see below. 1. Chest pain 2. Shortness of breath with exertion 3. History of dyslipidemia 4. Heavy smoker 5. Obesity PLAN: 1. Due to multiple risk factors for CAD we will do 2D echo and Dobutamine stress echo as he is unable to walk. 2. Chest x-ray normal will order PFT 3. Lipids 4. A1c 5. T4 TSH Plan and coordination of the patient's care discussed in the presence of Disbursing Agent and nurse. SCRIBED BY: REBECCA PENNINGTON, Or Assistant scribed while in presence of service performed by Dr. Blackwell/Pascale Stewart APRN on 03/12/22 ([id number])
[2022-03-12] MEDS ORDERED: NEURONTIN PO SCH (09:00)
[2022-03-12] MEDS ORDERED: CLARITIN PO SCH (09:00)
[2022-03-12 09:21] LABS: BILIRUBIN,URINE Negative (NEGATIVE); CLARITY,URINE Clear (CLEAR); COLOR,URINE Yellow (YELLOW); GLUCOSE, URINE (UA) Negative (NEGATIVE); KETONES,URINE Negative (NEGATIVE); LEUKOCYTE ESTERASE ,URINE Negative (NEGATIVE); NITRITE,URINE Negative (NEGATIVE); PH,URINE 5.5 (5-9); PROTEIN,URINE Negative (NEGATIVE); URINE, BLOOD Negative (NEGATIVE); UROBILINOGEN,URINE 0.2 (0.2)
[2022-03-12] MEDS: NORCO 10-325 PO SCH ×2 (09:29→14:57)
[2022-03-12] MEDS ORDERED: ATROPINE SULFATE PFS IVP ONE (09:57)
[2022-03-12] MEDS ORDERED: DOBUTAMINE 500 MG-D5W 250 ML 500 MG/250 ML BAG IV SCH (10:00)
[2022-03-12 11:10] LABS: CHOLESTEROL 183.6 mg/dL (0-200); HDL CHOLESTEROL 23.6 mg/dL (35-60); TRIGLYCERIDES 360.3 mg/dL (0-150)
--- NOTE | 2022-03-12 14:03 | ECHO2D ---
Date of Exam: 03/12/2022 Ordering Physician: MAURY PEREZ APRN Room #: 108 Reason for Echo: SOA, CHEST PAIN, L ARM PAIN, DYSLIPIDEMIA, SMOKER, OBESITY M-Mode Normal Adult Results LV Dimensions Normal Adult Results AoV Opening excursions >1.6 >1.6 LVEDD-base- 3.5-5.8 3.8 Ao root dimensions 2.0-3.7 3.2 LVESD-base- 3.1-4.6 L. Atrium dimensions 1.9-3.8 4.5 Post. Wall thickness 0.8-1.1 1.3 IV septum (thickness) 0.7-1.2 1.2 Post. Wall excursion 0.72-1.3 NORMAL Septal motion NORMAL Systolic motion R. Ventricular cavity 1.5-2.0 NORMAL LVEF 60% 76% Paradoxical septal wall motion NORMAL 2-D : 2-D M Mode Echocardiogram was performed using apical four chamber and left parasternal long and short axis views. Mitral, tricuspid and aortic valves appear to be normal. Contractility of the left ventricle seems to be normal, so is the cavity size. ENLARGED LEFT ATRIAL CAVITY. Aortic root appears to be normal. There is no pericardial effusion. There is no thrombus noted in the left ventricle or left atrial cavity. M-MODE: MV: NORMAL AV: NORMAL TV: NORMAL PV: CHAMBER SIZE: ENLARGED LEFT ATRIAL CAVITY WALL MOTION: NORMAL PERICARDIUM: NORMAL INTERPRETATION: 1. DIFFICULT STUDY 2. BORDERLINE LEFT VENTRICLE HYPERTROPHY WITH ENLARGED LEFT ATRIAL CAVITY 3. NORMAL LEFT VENTRICLE CONTRACTILITY--NORMAL LEFT VENTRICLE SIZE 4. NORMAL VALVES MTDD
--- NOTE | 2022-03-12 14:20 | US ---
EXAM: Carotid duplex ultrasound. HISTORY: Dizziness, lightheadedness, hypertension. COMPARISON: None. FINDINGS: Evaluation of the right and left carotid and vertebral arteries was performed using graham scale, color doppler, and spectral doppler. Right cervical carotid: Mild atherosclerotic plaque in the right internal carotid artery. Peak systo lic velocity right ICA 91.9cm/s. Velocity right CCA 65.1cm/s. Velocity ratio right ICA:CCA 1.4. Left cervical carotid: Mild atherosclerotic plaque in the left internal carotid artery. Peak systoli c velocity left ICA 128cm/s. Velocity left CCA 66.2cm/s. Velocity ratio left ICA:CCA 1.5. Vertebral arteries: Normal, antegrade flow. IMPRESSION: No evidence of significant carotid stenosis. Normal flow in the right and left vertebral arteries.
--- NOTE | 2022-03-12 14:21 | DOBSTECHO ---
Date of Test: 03/12/2022 Ordering Physician: DR. FOX/ Ollie PEREZ APRN Smoking History: 40 PK/YRS Reason for Examination: SOA, CHEST PAIN, DYSLIPIDEMIA, SMOKER Current Medications: GABAPENTIN, CYCLOBENZAPRINE, PRO AIR Height: 71" Weight: 278 LBS Target Heart Rate: 141/166 MAX S-T Segment Stage Time HR BPM BP MMHG Rhythm +/- Elevation Depression Symptoms Control Sitting 81 140/80 SR X NONE Dobutamine 250mg/D5W 5mcg/KG/mn 10mcg/KG/mn 3" 94 152/90 SR X NONE 15mcg/KG/mn 2" 96 166/66 SR X NONE 20mcg/KG/mn 2" 121 172/60 SR X NONE 25mcg/KG/mn :49 142 168/60 SR X NONE 30mcg/KG/mn 35mcg/KG/mn 40mcg/KG/mn 5" MIN POST INFUSION 129 150/70 SR X NONE 11" MIN POST INFUSION 94 SR X NONE DURATION OF INFUSION 7:49 MAXIMUM HEART RATE REACHED 142 BPM Interpretation: 1. TEST NEGATIVE FOR ISCHEMIC ST-T WAVE CHANGES 2. NO CHEST PAIN OR DISCOMFORT 3. NO ARRHYTHMIAS 4. OXYGEN SATURATION 98% THROUGHOUT THE TEST NORMAL LEFT VENTRICLE CONTRACTILITY--RESTING AND WITH DOBUTAMINE INFUSION MTDD
--- NOTE | 2022-03-12 14:24 | PCM.PROG ---
Date Seen by Provider: 03/12/22 Time Seen by Provider: 14:21 Subjective: chest pain gone, no shortness of breath Objective: Vitals: T=96.6 F, P=78, R=16, AS=381/78, SPO2=98 HEENT: []conjunctiva clear Neck: []supple Lungs: [] no respiratory distress CVS: []RRR Abdomen: []nondistended Extremities: []nicolasa Neurological: []alert and oriented Skin: []pink Lab/Tests/Diagnostic Imaging: [] 2decho unchanged Plan: evaluation report by Dr Blackwell pending, as is carotid dopplers and stress test care to Dr Lincoln at 19:00
--- NOTE | 2022-03-12 14:24 | ECHOSTRESS ---
Date of Exam: 03/12/2022 Ordering Physician: HOSPITALIST/ Ollie PEREZ APRN Reason for Echo: SOA, CHEST PAIN, DOBUTAMINE STRESS TEST M-Mode Normal Adult Results LV Dimensions Normal Adult Results AoV Opening excursions >1.6 LVEDD-base- 3.5-5.8 Ao root dimensions 2.0-3.7 LVESD-base- 3.1-4.6 L. [place]rium dimensions 1.9-3.8 Post. Wall thickness 0.8-1.1 IV septum (thickness) 0.7-1.2 Post. Wall excursion 0.72-1.3 Septal motion Systolic motion R. Ventricular cavity 1.5-2.0 LVEF 60% Paradoxical septal wall motion 2-D: NORMAL LEFT VENTRICLE CONTRACTILITY--RESTING AND WITH DOBUTAMINE INFUSION M-MODE: MV: AV: TV: PV: CHAMBER SIZE: WALL MOTION: NORMAL LEFT VENTRICLE CONTRACTILITY--RESTING AND WITH DOBUTAMINE INFUSION PERICARDIUM: INTERPRETATION: 1. NORMAL LEFT VENTRICLE CONTRACTILITY--RESTING AND WITH DOBUTAMINE INFUSION MTDD
[2022-03-12 14:34] VITALS: BP 131/85; TEMP 96.2
[2022-03-12 14:57] LABS: CREATINE KINASE 100.7 U/L (55-170)
[2022-03-12 15:11] LABS: TROPONIN I < 0.012 ng/ml (0.0000-0.120)
--- NOTE | 2022-03-12 15:37 | PCM.DC ---
Final Diagnosis: chest pain Physical Exam Appearance: Well-appearing Ill-appearing: None Pain Distress: None Eyes: Conjunctiva clear ENT: Oropharynx normal Neck: Supple Respiratory: Airway patent Cardiovascular: RRR GI/: Nontender Musculoskeletal: ROM intact Skin: Normal color Neurological: Alert and Oriented Psychiatric: Affect appropriate (1) Chest pain: Status: Acute Code(s): R07.9 - Chest pain, unspecified SNOMED Code(s): 22334279 Reason for Hospitalization: chest pain Prognosis/Condition at Discharge: good Medications at Discharge: Ambulatory Orders Medication Instructions Recorded cyclobenzaprine 10 mg tablet 10 mg PO TID PRN pain 10/11/13 acetaminophen 500 mg tablet (Mapap 500 mg PO DAILY 07/24/15 Extra Strength) gabapentin 300 mg capsule 300 mg PO BID #90 tab-caps 09/20/15 omeprazole 20 mg capsule,delayed 40 mg PO DAILY 07/21/17 release naproxen sodium 220 mg capsule 440 mg PO DAILY 11/18/18 hydrocodone 10 mg-acetaminophen 10 - 325 tab PO TID 04/23/21 325 mg tablet albuterol sulfate 90 mcg/actuation 2 puff inhalation Q6H PRN 09/15/21 aerosol inhaler (ProAir HFA) shortness of breath or wheezing #1 puff loratadine 10 mg tablet (Claritin) 10 mg PO QDAY 09/16/21 Lab/Diagnostics: stress test reported normal ranges, carotid dopplers reported no significant obstruction, 2decho reported normal lvef, serial troponins not elevated Education Provided to Patient and Family: Dr Blackwell evaluation is noncardiac Follow-ups: see your doctor, differential includes anxiety, gerd, chest wall pain, continue present medical regimen, 40 minutes spent discharging pt Discharge Disposition: Home Hospital Course: resolution of chest pain Plan: see your doctor, stop smoking, continue present medical regimen
[2022-03-12] MEDS ORDERED: LIPITOR PO SCH (21:00)
--- NOTE | 2022-03-16 14:35 | CONS ---
DATE OF CONSULTATION: 03/12/22 The patient's consult was done with Nurse Practitioner. REASON FOR CONSULTATION: Chest pain HISTORY OF PRESENT ILLNESS: The patient's chest pain is equivocal, it is left sided precordial going to the left shoulder and arm. Some shortness of breath that happened day prior to hospitalization. This was mainly without exertion. The patient's pain last 30-40 minutes. There was no sweating associated with it. The patient is disabled since 1997. Other obvious risk factors; family history of heart disease, heavy smoker for 30 years. BMI 39 almost morbid obesity, sedentary lifestyle. He doesn't know about his cholesterol. REVIEW OF SYSTEMS: CONSTITUTIONAL: No night sweats. Fatigue. No fever or chills. No weakness. HEENT: Eyes: No visual changes. No eye pain. No eye discharge. ENT: No sinus drainage. No epistaxis. No sinus pain. No sore throat. No odynophagia. No ear pain. No congestion. RESPIRATORY: No cough, no congestion. No hemoptysis. No shortness of breath. CARDIOVASCULAR: No angina symptoms. No CHF symptoms. Chest pain seems to be nonexertional, left sided going to the left arm. Exertional chest discomfort. No palpitations. No orthopnea. GASTROINTESTINAL: No abdominal pain. No nausea or vomiting. No diarrhea or constipation. No hematemesis. No hematochezia. GENITOURINARY: No urgency. No frequency. No dysuria. No hematuria. No obstructive symptoms. No discharge. No pain. No significant abnormal bleeding. MUSCULOSKELETAL: No musculoskeletal pain. No joint swelling. NEUROLOGICAL: No headache. No neck pain. No syncope. No seizures. No dizziness. PSYCHIATRIC: Not anxious. No depression. No suicidal thoughts. No homicidal thoughts. SKIN: No rash. No lesions. No wounds. ENDOCRINE: No unexplained weight loss. No weight gain. HEMATOLOGIC/LYMPHATIC: No anemia. No purpura. No petechiae. No prolonged or excessive bleeding. No palpable lymph nodes. MEDICATIONS: Cyclobenzaprine 10mg PO TID PRN Mapap Extra Strength 500mg PO daily Gabapentin 300mg PO BID Omeprazole 40mg PO daily Naproxen Sodium 440mg Po daily Hydrocodone-Acetaminophen 10-325mg PO TID ProAir HFA two puff inhalation Q 6 hours PRN Loratadine 10mg PO Q daily ALLERGIES: Oxycodone SOCIAL/PERSONAL/FAMILY HISTORY: The patient lives by himself. Daughter is with him. He does all activity of daily living. History of drug abuse. PHYSICAL EXAMINATION: VITAL SIGNS: Temperature 96.9, pulse 63, respiratory rate 18, blood pressure 140/74 and pulse ox 98%. HEENT: Head normocephalic, atraumatic. Eyes: Extraocular muscles are intact. Pupils are equal, round and reactive to light and accommodation. Ears: No lesions. Nose appeared normal. Throat: No exudate or erythema. NECK: Supple. No JVD, no carotid bruit. No lymphadenopathy or thyromegaly. LUNGS: Clear to auscultation. Percussion note normal. Chest symmetrical. HEART: S1, S2, no S3. No murmurs. No cyanosis or clubbing. No ascites. Pulses: Dorsalis pedis and posterior tibial pulses +2 bilaterally. ABDOMEN: Soft. Nontender. Bowel sounds active. No CVA tenderness. No mass felt. EXTREMITIES: No edema. Full range of motion of all extremities, equal. NEUROLOGIC: No focal deficit. Cranial nerves II through XII are grossly intact. No headache, no double vision or headache. SKIN: Not dry. Intact. Turgor - normal. LYMPHATIC: No palpable lymph nodes/no lymphedema. MUSCULOSKELETAL: Normal joints with no swelling. Muscle tone is normal. LABS: Lipid profile was examined, the patient's Non HDL fraction is high. Hgb A1c is 5.6, normal. T4 TSH normal. Carotid scan no evidence of significant carotid stenosis. EKG sinus rhythm. Borderline LVH. Echo showed LVH with LA cavity enlargement, normal LV contractility. Stress echo negative for ischemia. All the reports given to Dr. Patel. ASSESSMENT: 1. Chest pain seems to be noncardiac 2. Coronary artery disease risk factors RECOMMENDATIONS: 1. Counseling for smoking 2. Advised to lose weight 3. Refuses Bariatric referral for weight loss 4. Lipitor 20mg PO daily 5. Keep Non-HDL less than 100 6. Advised to cut down on salt intake 7. DASH diet discussed. 8. Goal of the blood pressure will be 135/85 or less 9. Followup with the primary careLove CONSULT 03/12/22: Level 5 MTDD
== END 2022-03-12 16:30 | disposition home or self-care (01) | DRG 313 ==
LOC: ED 21:52 → MEDSURG A 21:52 → OBSVTOIN 03-12 00:25 → MEDSURG A 03-12 00:51
PROVIDERS: ADMIT Internal Medicine Geriatric Medicine; ATTEND Emergency Medicine Emergency Medical Services
DX: F17.210 Nicotine dependence, cigarettes, uncomplicated; I51.7 Cardiomegaly; K21.9 Gastro-esophageal reflux disease without esophagitis; Z68.38 Body mass index [BMI] 38.0-38.9, adult; E66.9 Obesity, unspecified; F41.9 Anxiety disorder, unspecified; R06.02 Shortness of breath; R07.9 Chest pain, unspecified; E78.5 Hyperlipidemia, unspecified; Z20.822 Contact with and (suspected) exposure to COVID-19